=== PATIENT | male | born 1990 | race Two or more races ===

== ENCOUNTER 2020-11-03 12:46 | Emergency (ER) | payer SELFPAY ==
[~2020-11-03] VITALS: Ht 170.2 cm; Wt 82.0 kg
[2020-11-03 15:12] VITALS: BP 112/78
== END 2020-11-03 15:08 | disposition home or self-care (01) ==
LOC: ER 12:46
DX: S19.9XXA Unspecified injury of neck, initial encounter (principal); Z88.6 Allergy status to analgesic agent; V43.52XA Car driver injured in collision with other type car in traffic accident, initial encounter; Y93.89 Activity, other specified; Y92.014 Private driveway to single-family (private) house as the place of occurrence of the external cause
CPT/HCPCS: 72040; 72100; 99284